=== PATIENT | female | born 1955 | race Caucasian/White ===

== ENCOUNTER 2019-02-08 09:06 | Inpatient (IN) | payer BC ==
[~2019-02-08] VITALS: Ht 160 cm; Wt 81.0 kg
--- NOTE | 2019-02-08 09:40 | NUR ---
FIDELIA-Sowmya IS AT THE BEDSIDE FOR ASSESSMENT
[2019-02-08] MEDS ORDERED: ONDANSETRON ODT 4 MG ONE (09:51)
[2019-02-08] MEDS ORDERED: OXYcodone/APAP 5/325MG TABLET ONE (09:52)
--- NOTE | 2019-02-08 09:57 | NUR ---
PT TO XR W TECH
[2019-02-08] MEDS ORDERED: ONDANSETRON ODT 4 MG PO ONE (10:00)
[2019-02-08] MEDS ORDERED: OXYcodone/APAP 5/325MG TABLET PO ONE (10:00)
[2019-02-08] MEDS ORDERED: SODIUM CHLORIDE 0.9% 1,000 ML IV ONE (11:23)
[2019-02-08 11:24] LABS: BASOPHILS # (AUTO) 0.01 x10^3/uL (0-0.1); BASOPHILS % (AUTO) 0 % (0-1); EOSINOPHILS % (AUTO) 0 % (1-7); LYMPHOCYTES # (AUTO) 1.02 x10^3/uL (1-3.4); LYMPHOCYTES % (AUTO) 9 % (22-44); MD NO; MEAN CORPUSCULAR HEMOGLOBIN 31.9 pg (27.0-34.8); MEAN CORPUSCULAR HGB CONC 32.7 g/dL (32.4-35.8); MEAN CORPUSCULAR VOLUME 97.5 fL (80-100); MONOCYTES # (AUTO) 0.74 x10^3/uL (0.2-0.8); MONOCYTES % (AUTO) 7 % (2-9); NEUTROPHILS # (AUTO) 9.43 x10^3/uL (1.8-6.8); NEUTROPHILS % (AUTO) 84 % (42-75); PLATELET COUNT 354 x10^3/uL (130-400); RED BLOOD COUNT 4.39 x10^6/uL (3.82-5.3); RED CELL DISTRIBUTION WIDTH 15.6 % (9.6-15.2)
[2019-02-08] MEDS ORDERED: SODIUM CHLORIDE FLUSH 10ML SYR IVF PRN (11:30)
[2019-02-08] MEDS ORDERED: ONDANSETRON 2MG/ML, 2ML IVPush PRN ×2 (11:30→12:30)
[2019-02-08] MEDS ORDERED: MORPHINE SULFATE 4 MG/ML, 1ML IVPush PRN (11:30)
[2019-02-08 11:36] LABS: ALANINE AMINOTRANSFERASE 33 U/L (12-78); ALBUMIN 4.5 g/dL (3.4-5.0); ANION GAP 16 mmol/L (5-15); CALCIUM 9.6 mg/dL (8.5-10.1); CHLORIDE 99 mmol/L (98-107); CREATININE 0.72 mg/dL (0.55-1.02)
[2019-02-08 11:39] LABS: ALKALINE PHOSPHATASE 58 U/L (45-117); BILIRUBIN,TOTAL 0.5 mg/dL (0.2-1.0); TOTAL PROTEIN 7.6 g/dL (6.4-8.2)
--- NOTE | 2019-02-08 11:47 | NUR ---
verbal sbar report exchanged berenice barrios (rn) on the floor for admission. we will begin to prepare fopr transport at this time.
[2019-02-08] MEDS ORDERED: SODIUM CHLORIDE FLUSH 10ML SYR IVF ONE (12:00)
[2019-02-08] MEDS ORDERED: ENALAPRILAT 1.25 MG/ML, 2ML IVPush PRN (12:30)
[2019-02-08] MEDS ORDERED: morphine SULFATE 10 MG/ML, 1ML IVPush PRN (12:30)
[2019-02-08] MEDS ORDERED: LABETALOL 5MG/ML, 20ML IVPush PRN (12:30)
[2019-02-08] MEDS ORDERED: BISACODYL 10 MG SUPP PR PRN (12:30)
[2019-02-08] MEDS ORDERED: ACETAMINOPHEN 325 MG TABLET PO PRN ×2 (12:30→18:30)
[2019-02-08] MEDS ORDERED: ONDANSETRON ODT 4 MG PO PRN (12:30)
[2019-02-08 12:55] VITALS: BP 134/75
[2019-02-08] MEDS: LACTATED RINGERS 1,000 ML IV SCH (12:55)
[2019-02-08 13:08] VITALS: BP 134/75
[2019-02-08] MEDS ORDERED: FENTANYL PF 100 MCG/2ML ONE ×3 (16:31→18:59)
[2019-02-08] MEDS ORDERED: MIDAZOLAM 1 MG/ML, 2ML ONE (16:31)
[2019-02-08] MEDS ORDERED: NEOSPORIN OINT, 15GM ONE (17:14)
[2019-02-08] MEDS ORDERED: KETOROLAC 30 MG/1 ML ONE (17:36)
[2019-02-08] MEDS ORDERED: ONDANSETRON 2MG/ML, 2ML ONE (18:01)
[2019-02-08] MEDS ORDERED: PROPOFOL 10 MG/ML, 20ML ONE (18:01)
[2019-02-08] MEDS ORDERED: SUCCINYLCHOLINE 20 MG/ML, 10ML ONE (18:01)
[2019-02-08] MEDS ORDERED: CEFAZOLIN 1,000 MG ONE (18:01)
[2019-02-08] MEDS ORDERED: DEXAMETHASONE 4 MG/ML, 1ML ONE (18:01)
[2019-02-08] MEDS ORDERED: MEPERIDINE/PF 100 MG/ML ONE (18:02)
[2019-02-08] MEDS ORDERED: HYDROmorphone 2 MG/ML, 1ML IVPush PRN (18:30)
[2019-02-08] MEDS ORDERED: ALBUTEROL/IPRATROPIUM 2.5MG/0.5MG, 3 ML NPPB PRN (18:30)
[2019-02-08] MEDS ORDERED: MIDAZOLAM 1 MG/ML, 2ML IV PRN (18:30)
[2019-02-08] MEDS ORDERED: SCOPOLAMINE PATCH, 1.5MG PATCH.TD72 TD PRN (18:30)
[2019-02-08] MEDS ORDERED: PROMETHAZINE 25 MG/ML, 1ML IV PRN (18:30)
[2019-02-08] MEDS ORDERED: FENTANYL PF 100 MCG/2ML IV PRN (18:30)
[2019-02-08] MEDS ORDERED: ONDANSETRON 2MG/ML, 2ML IV PRN (18:30)
[2019-02-08] MEDS ORDERED: OXYcodone 5 MG/5 ML ORAL.SOL UDC PO PRN (18:30)
[2019-02-08] MEDS ORDERED: DIAZEPAM 5 MG/ML, 2ML IVPush PRN (18:30)
[2019-02-08] MEDS ORDERED: hydrALAzine 20 MG/ML, 1ML IV PRN (18:30)
[2019-02-08] MEDS ORDERED: MEPERIDINE/PF 25MG/0.5ML IVPush PRN (18:30)
[2019-02-08] MEDS ORDERED: OXYcodone 5 MG/5 ML ORAL.SOL UDC ONE (19:00)
[2019-02-08 19:56] VITALS: BP 132/80
[2019-02-08] MEDS ORDERED: CITA20TA9 PO (20:42)
[2019-02-08] MEDS ORDERED: MIRT45TA3 PO (20:42)
[2019-02-08] MEDS ORDERED: LEVO125T PO (20:49)
[2019-02-08] MEDS ORDERED: LEVO112T2 PO (20:49)
[2019-02-08] MEDS ORDERED: OXYcodone IR 5MG TABLET PO PRN (21:00)
[2019-02-08] MEDS ORDERED: PANT20TA3 PO (21:01)
[2019-02-08] MEDS: CITALOPRAM 20 MG TABLET PO SCH (22:34)
[2019-02-08] MEDS: OXYcodone IR 5MG TABLET PO PRN (22:35)
[2019-02-08] MEDS: DOCUSATE 100 MG CAPSULE PO SCH (22:35)
[2019-02-08] MEDS: MIRTAZAPINE 15 MG TABLET PO SCH (22:35)
[2019-02-09 00:29] VITALS: BP 123/74
[2019-02-09] MEDS: LACTATED RINGERS 1,000 ML IV SCH ×4 (01:19→23:03)
[2019-02-09] MEDS: CEFAZOLIN PMX 2GM/50ML 50 ML IVPB SCH ×3 (01:19→17:32)
[2019-02-09 04:20] VITALS: BP 118/68
[2019-02-09] MEDS: ENOXAPARIN 40 MG/0.4 ML SQ SCH (05:27)
[2019-02-09] MEDS: OXYcodone IR 5MG TABLET PO PRN ×3 (05:27→15:33)
[2019-02-09] MEDS ORDERED: LEVOTHYROXINE 112 MCG TABLET PO SCH (06:00)
[2019-02-09 06:03] LABS: MEAN CORPUSCULAR HEMOGLOBIN 30.7 pg (27.0-34.8); MEAN CORPUSCULAR HGB CONC 31.2 g/dL (32.4-35.8); MEAN CORPUSCULAR VOLUME 98.4 fL (80-100); MEAN PLATELET VOLUME 8.1 fL (7.4-10.4); PLATELET COUNT 350 x10^3/uL (130-400); RED CELL DISTRIBUTION WIDTH 15.9 % (9.6-15.2)
[2019-02-09 06:07] LABS: CHLORIDE 100 mmol/L (98-107)
[2019-02-09 06:16] LABS: ANION GAP 13 mmol/L (5-15); CALCIUM 8.9 mg/dL (8.5-10.1); CREATININE 0.84 mg/dL (0.55-1.02)
[2019-02-09 06:27] LABS: BASOPHILS % (AUTO) 0 % (0-1); EOSINOPHILS % (AUTO) 0 % (1-7); LYMPHOCYTES # (AUTO) 0.74 x10^3/uL (1-3.4); LYMPHOCYTES % (AUTO) 8 % (22-44); MD SCAN; MONOCYTES % (AUTO) 7 % (2-9); NEUTROPHILS # (AUTO) 8.25 x10^3/uL (1.8-6.8); NEUTROPHILS % (AUTO) 85 % (42-75)
[2019-02-09 08:19] VITALS: BP 99/66
[2019-02-09] MEDS: PANTOPRAZOLE 20MG TABLET PO PRN (08:25)
[2019-02-09] MEDS: DOCUSATE 100 MG CAPSULE PO SCH ×2 (08:25→20:43)
[2019-02-09] MEDS: POLYETHYLENE GLYCOL 17 GM PACKET PO SCH (08:25)
[2019-02-09] MEDS: ACETAMINOPHEN 500 MG TABLET PO SCH ×3 (08:25→20:43)
[2019-02-09] MEDS: CALCIUM CARBONATE 500 MG TAB.CHEW PO PRN (13:23)
[2019-02-09 14:18] VITALS: BP 117/65
[2019-02-09] MEDS: DIPHENHYDRAMINE 25 MG CAPSULE PO PRN (20:43)
[2019-02-09] MEDS: MIRTAZAPINE 15 MG TABLET PO SCH (20:43)
[2019-02-09] MEDS: CITALOPRAM 20 MG TABLET PO SCH (20:43)
[2019-02-09 20:57] VITALS: BP 117/71
[2019-02-10 00:13] VITALS: BP 95/59
[2019-02-10] MEDS: ACETAMINOPHEN 500 MG TABLET PO SCH ×2 (00:52→07:56)
[2019-02-10] MEDS: DIPHENHYDRAMINE 25 MG CAPSULE PO PRN (05:06)
[2019-02-10] MEDS: ENOXAPARIN 40 MG/0.4 ML SQ SCH (05:06)
[2019-02-10] MEDS ORDERED: LEVOTHYROXINE 125 MCG TABLET PO SCH (06:00)
[2019-02-10 07:40] VITALS: BP 109/68
[2019-02-10] MEDS: CALCIUM CARBONATE 500 MG TAB.CHEW PO PRN (07:56)
[2019-02-10] MEDS: POLYETHYLENE GLYCOL 17 GM PACKET PO SCH (07:56)
[2019-02-10] MEDS: PANTOPRAZOLE 20MG TABLET PO PRN (07:56)
[2019-02-10] MEDS: LACTATED RINGERS 1,000 ML IV SCH (07:56)
[2019-02-10] MEDS: DOCUSATE 100 MG CAPSULE PO SCH (07:56)
[2019-02-10] MEDS ORDERED: ACET500T71 PO (10:35)
[2019-02-10] MEDS ORDERED: TRAM50TA2 PO (10:35)
[2019-02-10] MEDS ORDERED: ASPI-496 PO (10:36)
[2019-02-10 11:20] VITALS: BP 121/80
== END 2019-02-10 13:09 | disposition home or self-care (01) | DRG 470 ==
LOC: ED 11:22 → EDIP 11:23 → ED 11:33 → 4NOR 12:30 → DCLOUNGE 02-10 12:55
PROVIDERS: ADMIT Internal Medicine; ATTEND Internal Medicine
PROC: 0SRS019 Replacement of Left Hip Joint, Femoral Surface with Metal Synthetic Substitute, Cemented, Open Approach (ICD-10-PCS; principal; 2019-02-08 18:00)
DX: S72.032A Displaced midcervical fracture of left femur, initial encounter for closed fracture (principal); E87.1 Hypo-osmolality and hyponatremia; E03.9 Hypothyroidism, unspecified; S72.452A Displaced supracondylar fracture without intracondylar extension of lower end of left femur, initial encounter for closed fracture; F32.9 Major depressive disorder, single episode, unspecified; G47.33 Obstructive sleep apnea (adult) (pediatric); K21.9 Gastro-esophageal reflux disease without esophagitis; I10 Essential (primary) hypertension; Z96.653 Presence of artificial knee joint, bilateral; W01.0XXA Fall on same level from slipping, tripping and stumbling without subsequent striking against object, initial encounter; I45.81 Long QT syndrome; M41.9 Scoliosis, unspecified; M51.36 Other intervertebral disc degeneration, lumbar region; Z80.1 Family history of malignant neoplasm of trachea, bronchus and lung; Z98.1 Arthrodesis status; Z90.49 Acquired absence of other specified parts of digestive tract; Z82.49 Family history of ischemic heart disease and other diseases of the circulatory system; Z79.899 Other long term (current) drug therapy; Y93.89 Activity, other specified; Y92.098 Other place in other non-institutional residence as the place of occurrence of the external cause; Y99.8 Other external cause status
CPT/HCPCS: 36415; 71045; 72100; 80048; 80053; 85025; 93005; 99285; C1713; G0378; J0690; J1100; J1650; J1885; J2250; J2405; J2704; J3010; Q0162; C1762; C1776; J0330; J2175; J2270; J7120; Q0163